=== PATIENT | male | born 1990 | race African-American/Black ===

== ENCOUNTER 2018-12-15 16:48 | Outpatient (CLI) | payer MEDICAID | END 2018-12-15 16:49 | disposition critical access hospital (66) | LOC: EMS 16:48 | PROVIDERS: ATTEND Surgery | DX: R09.89 Other specified symptoms and signs involving the circulatory and respiratory systems (principal) ==

== ENCOUNTER 2018-12-15 17:07 | Emergency (ER) | payer MEDICAID ==
[2018-12-15 17:40] LABS: BASOPHILS # (AUTO) 0.1 10^3/uL (0.0-0.1); BASOPHILS % (AUTO) 0.6 %; EOSINOPHILS # (AUTO) 0.1 10^3/uL (0.0-0.7); EOSINOPHILS % (AUTO) 1.6 %; HGB - HEMOGLOBIN 13.8 g/dL (14.0-18.0); LYMPHOCYTES # (AUTO) 3.2 10^3/uL (1.5-3.5); LYMPHOCYTES % (AUTO) 36.3 %; MEAN CORPUSCULAR HEMOGLOBIN 29.2 pg (27.0-31.0); MEAN CORPUSCULAR HGB CONC 32.6 g/dL (32.0-36.0); MEAN CORPUSCULAR VOLUME 89.4 fL (80.0-94.0); MEAN PLATELET VOLUME 9.8 fL (7.4-11.4); MONOCYTES # (AUTO) 0.9 10^3/uL (0.0-1.0); MONOCYTES % (AUTO) 9.9 %; NEUTROPHILS # (AUTO) 4.6 10^3/uL (1.5-6.6); NEUTROPHILS % (AUTO) 51.3 %; PLT - PLATELET COUNT 244 10^3/uL (130-450); RED BLOOD COUNT 4.73 10^6/uL (4.70-6.10); RED CELL DISTRIBUTION WIDTH 12.2 % (12.0-15.0); WHITE BLOOD COUNT 8.9 x10^3/uL (4.8-10.8)
[2018-12-15 17:57] LABS: ALBUMIN 4.6 g/dL (3.2-5.5); ALBUMIN/GLOBULIN RATIO 1.3 (1.0-2.2); BILIRUBIN,TOTAL 0.7 mg/dL (0.2-1.0); CALCIUM 9.5 mg/dL (8.5-10.3); CREATININE 0.8 mg/dL (0.6-1.2); TOTAL PROTEIN 8.1 g/dL (6.7-8.2)
--- NOTE | 2018-12-15 18:09 | XRAY Report ---
Reason: Chest pain Procedure Date: 12/15/2018 Accession Number: [id number] / [id number] Procedure: XR - Chest 2 View X-Ray CPT Code: 60473 Final Report FULL RESULT: EXAM: CHEST RADIOGRAPHY EXAM DATE: 12/15/2018 05:28 PM. CLINICAL HISTORY: Chest pain. COMPARISON: None. TECHNIQUE: 2 views. FINDINGS: Lungs/Pleura: No focal opacities evident. No pleural effusion. No pneumothorax. Normal volumes. Mediastinum: Heart and mediastinal contours are unremarkable. Other: None. IMPRESSION: Normal 2-view chest radiography. [facility]
--- NOTE | 2018-12-15 19:49 | ED Physician Documentation ---
PD HPI CHEST PAIN - Stated complaint Stated Complaint: CP - Chief complaint Chief Complaint: Cardiac - History obtained from History obtained from: Patient - History of Present Illness Timing - onset: Other (This Otherwise and previously healthy 28-year-old gentleman has had chest pain for a year. It is on and off. It was exertional at the beginning but now is at rest. He describes it as a skipped or fast heartbeat within a radiating chest pain anteriorly up to the upper left breast and down the arm. It is happening frequently. Is not exertional at this point. Denies pedal edema or calf pain. No family history of heart issues. He says he was seen in the emergency department in [place] few months ago for same, sounds like his cardiac enzymes were negative and subsequently was given Ativan thinking it might be anxiety which he says was not helpful and he does not think it's anxiety.) Review of Systems Constitutional: denies: Fever, Chills, Fatigue, Weight Loss Nose: denies: Rhinorrhea / runny nose, Congestion Throat: denies: Sore throat Cardiac: reports: Chest pain / pressure, Palpitations. denies: Pedal edema, Calf pain Respiratory: denies: Dyspnea PD PAST MEDICAL HISTORY - Past Medical History Past Medical History: No Cardiovascular: None Respiratory: None Endocrine/Autoimmune: None GI: GERD : None HEENT: None Psych: None Musculoskeletal: None Derm: None - Past Surgical History Past Surgical History: No HEENT: Tonsil/Adenoidectomy - Present Medications Home Medications: Ambulatory Orders Medication Instructions Recorded Confirmed Metoprolol Tartrate 25 mg PO BID #120 tablet 12/15/18 - Allergies Allergies/Adverse Reactions: Allergies Allergy/AdvReac Type Severity Reaction Status Date / Time No Known Drug Allergies Allergy Verified 12/15/18 17:19 - Social History Does the pt smoke?: No Smoking Status: Never smoker Does the pt drink ETOH?: Yes ETOH Use: Wine, Beer, Liquor Does the pt have substance abuse?: No - Immunizations Immunizations are current?: Yes - POLST Patient has POLST: No PD ED PE NORMAL - Vitals Vital signs reviewed: Yes - General General: Alert and oriented X 3, No acute distress - HEENT HEENT: PERRL, EOMI - Neck Neck: Supple, no meningeal sign, No bony TTP - Cardiac Cardiac: RRR, No murmur, Other (Mild tenderness of the left upper chest wall) - Respiratory Respiratory: No respiratory distress, Clear bilaterally - Abdomen Abdomen: Non tender - Extremities Extremities: No edema, No calf tenderness / cord - Neuro Neuro: Alert and oriented X 3, Normal speech - Psych Psych: Normal mood, Normal affect Results - Vitals Vitals: Vital Signs - 24 hr 12/15/18 12/15/18 17:17 19:20 Temperature 37.1 C Heart Rate 76 70 Respiratory 20 16 Rate Blood Pressure 145/72 H 138/75 H O2 Saturation 99 99 Oxygen O2 Source Room air - EKG (time done) 194 Rate: Rate (enter#) (85) Rhythm: NSR [place]: Normal Intervals: Normal [place] QRS: Normal Ischemia: Normal ST segments. No: ST elevation c/w ischemia - Labs Labs: Laboratory Tests 12/15/18 12/15/18 12/15/18 17:35 17:35 19:35 WBC 8.9 RBC 4.73 Hgb 13.8 L Hct 42.3 MCV 89.4 MCH 29.2 MCHC 32.6 RDW 12.2 Plt Count 244 MPV 9.8 Neut # (Auto) 4.6 Lymph # (Auto) 3.2 [place] # (Auto) 0.9 Eos # (Auto) 0.1 Baso # (Auto) 0.1 Absolute Nucleated RBC 0.00 Nucleated RBC % 0.0 Sodium 142 Potassium 3.7 Chloride 103 Carbon Dioxide 31 Anion Gap 8.0 BUN 10 Creatinine 0.8 Estimated GFR (MDRD) 139 Glucose 95 Calcium 9.5 Total Bilirubin 0.7 AST 20 ALT 30 Alkaline Phosphatase 63 Troponin I High Sens < 2.3 L Total Protein 8.1 Albumin 4.6 Globulin 3.5 Albumin/Globulin Ratio 1.3 Lipase 36 PD MEDICAL DECISION MAKING - ED course ED course: 28-year-old gentleman with atypical chest pain of long-term duration. His EKG is normal. His description actually sounds more like PVCs than anything else and he does admit the caffeine in the past has been making symptoms worse. He has an appoint with PCP later this month and I recommended that he would probably need a stress test. In the interim we can try some beta-blockers. Departure - Departure Disposition: 01 Home, Self Care Clinical Impression: Chest pain Qualifiers: Chest pain type: unspecified Qualified Code(s): R07.9 - Chest pain, unspecified Condition: Good Record reviewed to determine appropriate education?: Yes Instructions: ED Chest Pain NonCardiac Prescriptions: Metoprolol Tartrate 25 mg PO BID #120 tablet Comments: As discussed, your description is most consistent with what are called premature ventricular contractions, this is not dangerous. I think he should have a stress test, when you follow-up with your physician in [place], discussed this. In the interim you can trial the beta-ramakrishna to see if it helps. If you do end up having a stress test, the beta-blockers may have to be stopped prior to the stress test.
[2018-12-15 20:24] VITALS: BP 125/77
== END 2018-12-15 20:28 | disposition home or self-care (01) ==
LOC: ED 17:07 → EDBD 17:07 → ED 20:28
DX: R07.9 Chest pain, unspecified (principal)
CPT/HCPCS: 36415; 71046; 80053; 83690; 84484; 85025; 93005; 99284